=== PATIENT | male | born 1965 | race Caucasian/White ===

== ENCOUNTER 2024-03-31 13:43 | Inpatient (IN) | payer OTHER, SELFPAY ==
[2024-03-31 13:49] VITALS: BP 170/96; PULSE 85; RESP 20; TEMP 36.3; O2SAT 97
[2024-03-31 13:51] VITALS: BMI 21.2
[2024-03-31 14:00] VITALS: BP 164/111; PULSE 81; RESP 20; TEMP 36.4; O2SAT 96
[2024-03-31] MEDS: LORazepam 2 mg Tablet PO (14:34)
--- NOTE | 2024-03-31 14:36 | PC.NURSE ---
Ativan 2mg PO given per CIWA protocol score of 12.
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
--- NOTE | 2024-03-31 15:24 | PC.NURSE ---
This nurse contacted [facility] in [place] in an attempt to reconcile medications. I was transferred to a clinic in [place]. Left message for somebody to return call.
[2024-03-31] MEDS: nicotine 4 mg lozenge MUCOUS MEM (15:27)
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
--- NOTE | 2024-03-31 17:10 | PC.NURSE ---
This nurse called [facility] in [place] and talked to MARINA Diaz, the nurse who gave report on this patient, requesting that more information be faxed, including any lab results. Emily said that she would try to fax within the hour.
--- NOTE | 2024-03-31 17:11 | PC.NURSE ---
This nurse faxed a cover letter along with patient's name, , continuity of care , and current med list to Sachi at the [facility]. . Fax:
[2024-03-31 20:00] VITALS: BP 133/94; PULSE 100; RESP 16; TEMP 36.7; O2SAT 96
[2024-04-01] VITALS (7 sets, daily range): BP systolic 133–163; BP diastolic 88–114; PULSE 66–98; RESP 15–18; TEMP 36.4; O2SAT 95–99
[2024-04-01] MEDS: LORazepam 2 mg Tablet PO ×2 (06:34→16:20)
[2024-04-01] MEDS: multivitamin therapeutic Tablet 1 TAB PO (08:24)
[2024-04-01] MEDS: thiamine 100 mg Tablet PO (08:24)
[2024-04-01] MEDS: folic acid 1 mg Tablet PO (08:24)
[2024-04-01] MEDS: duloxetine 30 mg Capsule PO (08:25)
[2024-04-01] MEDS: nicotine 21 mg Patch 1 PATCH TRANSDERMA (08:25)
--- NOTE | 2024-04-01 09:09 | PC.NURSE ---
PT CURRENTLY DENIES SI/HI/AH/VH. PT CURRENTLY ENDORSES ANXIETY AND DEPRESSION RATING BOTH A 7/10 ON A 0-10 SCALE WHERE 0 IS NONE AND 10 IS THE WORST POSSIBLE. PT WAS COOPERATIVE WITH ASSESSMENT. PT SCORED A 7 ON THE CIWA PROTOCOL AND DID NOT RECEIVE PRN MEDICATION DUE TO THIS SCORE. PT CURRENT NEEDS ARE MET AT THIS TIME.
[2024-04-01] MEDS: lisinopril 10 mg Tablet PO (14:51)
[2024-04-01] MEDS: tamsulosin 0.4 mg Capsule 0.400000000000000022 MG PO (14:51)
--- NOTE | 2024-04-01 16:18 | PC.NURSE ---
PT SCORED 5 ON CIWA PROTOCOL. PT BLOOD PRESSURE WAS 156/110. THIS NURSE SPOKE WITH PHYSICIAN. PHYSICIAN GAVE ORDER TO GIVE ATIVAN 2 MG FOR ALCOHOL WITHDRAW. PT RECEIVED THIS MEDICATION.
--- NOTE | 2024-04-01 17:11 | W.PM.NPUPNS ---
Subjective NPU Subjective: 58-year-old male with a history of depression and alcohol dependence admitted with suicidal ideation. The patient had been able to attend groups. He reported motivation with getting sober off of alcohol. He had reported a history of poor tolerance of antidepressants although he had started the Cymbalta without any noted side effects today. Patient reported that he would like to consider Vivitrol to manage his cravings for alcohol. He had reported continued use of alcohol despite significant adverse consequences. He had [facility]. He had reported low motivation and low energy. He did not endorse any clear history of shell. The patient had reported that he was desiring to live and stated that his alcohol abuse would kill him. He had required Ativan for alcohol related withdrawal on the [facility] protocol. Mental Status Exam MSE Comments: Patient is a casually dressed thin white male who appeared his stated age with fair eye contact. His gait was within normal limits. There was no evidence of any abnormal involuntary motor movements tics or tremors appreciated. His speech was normal in regards to rate rhythm and prosody. His mood was described as depressed. His affect was flat today. His thought process was linear, logical, and goal-directed. His thought content showed no evidence of active homicidal ideation. He had endorsed suicidal ideation without an active plan. There was no clear evidence of delusional thinking. He did not appear to be responding to internal stimuli. He denied any auditory or visual hallucinations. His attention span appeared fair. His insight is poor. His judgment is poor. His impulse control appeared limited. His recent and remote memory appeared grossly intact. Vitals/I&O/Wt Last Vital Signs Temp 98.1 F 03/31/24 20:00 Pulse 93 04/01/24 16:00 Resp 17 04/01/24 16:00 BP 156/110 04/01/24 16:00 Pulse Ox 95 04/01/24 16:00 O2 Del Method Room Air 04/01/24 16:00 Weight last 48 hrs Weight 63.503 kg A&P Assessment and plan (1) Alcohol dependence: (2) Major depressive disorder, recurrent severe without psychotic features: (3) PTSD (post-traumatic stress disorder): Plan 58-year-old male with alcohol dependence, PTSD and Major depression admitted with suicidal ideation with current alcohol withdrawal symptoms. #1.? Engage patient in individual milieu and group therapy. #2?? Recommend sober living treatment at the highest level of care to which the patient is willing to commit #3??? CIWA for alcohol withdrawal #4?? TO-15 minute checks #5?? Continue Cymbalta 30mg daily. #6 Restart outpatient medications. #7 VIVITROL 380mg IM tommorow. start trial of naltrexone oral today. Involuntary Hold Information 96 Hour Hold: 96 Hour Involuntary Admission: No Attestations NPU Medical Necessity Statement*: Inpatient hospitalization is medically necessary and deemed to ?be ?the clinically appropriate intervention ?at this time.? We will monitor/initiate medications and make changes as indicated.?? The patient?s likely length of stay 4-6 days. Coding Level of Care Code Acute Code for [facility]wd Diagnoses Alcohol dependence F10.20 Major depressive disorder, recurrent severe without psychotic features F33.2 PTSD (post-traumatic stress disorder) F43.10
[2024-04-01] MEDS: trazodone 50 mg Tablet PO (21:03)
[2024-04-01] MEDS: atorvastatin 40 mg Tablet PO (21:03)
[2024-04-01] MEDS: hyDROXYzine 25 mg Capsule 100 MG PO (21:03)
[2024-04-02] VITALS (7 sets, daily range): BP systolic 120–135; BP diastolic 83–99; PULSE 61–110; RESP 16–17; TEMP 36.5–36.7; O2SAT 94–98
[2024-04-02] MEDS: lisinopril 10 mg Tablet PO (08:30)
[2024-04-02] MEDS: cholecalciferol (vitamin D3) 1,000 unit Tablet 1000 UNIT PO (08:30)
[2024-04-02] MEDS: multivitamin therapeutic Tablet 1 TAB PO (08:30)
[2024-04-02] MEDS: tamsulosin 0.4 mg Capsule 0.400000000000000022 MG PO (08:30)
[2024-04-02] MEDS: nicotine 21 mg Patch 1 PATCH TRANSDERMA (08:31)
[2024-04-02] MEDS: duloxetine 30 mg Capsule PO (08:31)
[2024-04-02] MEDS: thiamine 100 mg Tablet PO (08:31)
[2024-04-02] MEDS: aspirin 81 mg EC Tablet PO (08:31)
[2024-04-02] MEDS: folic acid 1 mg Tablet PO (08:31)
--- NOTE | 2024-04-02 08:56 | PC.NURSE ---
SITTING IN BED, PT IS VISUALLY ANXIOUS. DENIES PAIN. DENIES SI/HI AND AVH AT THIS TIME. PT IS NOTED TO BE WITHDRAWN. RATES ANXIETY 2/10 AND DEPRESSION 5/10. PT IS NOTED TO HAVE A DEPRESSED AND ANXIOUS MOOD. DECLINES MEDICATIONS FOR ANXIETY AT THIS TIME. CIWA PROTOCOL CONTINUES AND PT HAS SCORED 0. PT STATES GOAL FOR THE DAY IS JUST KEEP TELLING MYSELF IF I DO THE WORK THEN EVERYTHING WILL BE OK FOR M E. ALL QUESTIONS ANSWERED AND SUPPORT VOICED.
[2024-04-02] MEDS: NON-FORMULARY MEDICATION 50 EACH PO (12:47)
--- NOTE | 2024-04-02 14:46 | P.NPUPN_ITS ---
Subjective NPU Subjective: 58-year-old male with a history of depre ssion and alcohol dependence admitted with suicidal ideation. The patient reported depressed mood. He had reported no side effects currently from the Cymbalta. He reported continued cravings for alcohol. He remained agreeable to a trial of Vivitrol intramuscularly to target his significant alcohol abuse. He had continued to require Ativan for alcohol- related withdrawals here on the unit. He had continued to report low motivation and low energy and continued to express concern that he will from his alcohol use. Patient had current plans for going inpatient but wanted to check with his workplace to see whether it would be available for him to take a temporary leave of absence. Mental Status Exam MSE Comments: Patient is a casually dressed thin white male with marvin complexion who appeared his stated age with fair eye contact. His gait was within normal limits. There was no evidence of any abnormal involuntary motor movements tics but a mild tremor appreciated billaterally in hands. His speech was normal in regards to rate rhythm and prosody. His mood was described as down. His affect was restricted. His thought process was linear, logical, and goal-directed. His thought content showed no evidence of active homicidal ideation. He denied suicidal ideation with no active plan. There was no clear evidence of de lusional thinking. He did not appear to be responding to internal stimuli. He denied any auditory or visual hallucinations. His attention span appeared fair. His insight is poor. His judgment is poor. His impulse control appeared limited. His recent and remote memory appeared grossly intact. Vitals/I&O/Wt Last Vital Signs Temp 97.5 F L 04/01/24 20:00 Pulse 93 04/02/24 12:00 Resp 16 04/02/24 12:00 BP 122/89 04/02/24 12:00 Pulse Ox 96 04/02/24 12:00 O2 Del Method Room Air 04/01/24 16:00 A&P Assessment and plan (1) Alcohol dependence: (2) Major depressive disorder, recurrent severe without psychotic features: (3) PTSD (post-traumatic stress disorder): Plan 58-year-old male with alcohol dependence, PTSD and Major depression admitted with suicidal ideation with current alcohol withdrawal symptoms. #1.? Engage patient in individual milieu and group therapy. #2?? Recommend sober living treatment at the highest level of care to which the patient is willing to commit #3??? CIWA for alcohol withdrawal #4?? TO-15 minute checks #5?? Continue Cymbalta 30mg daily with increase in 2-3 days. #6 Continue outpatient medications. #7 VIVITROL 380mg IM to be given tommorow. Involuntary Hold Information 96 Hour Hold: 96 Hour Involuntary Admission: No Attestations NPU Medical Necessity Statement*: Inpatient hospitalization is medically necessary and deemed to ?be ?the clinically appropriate intervention ?at this time.? We will monitor/initiate medications and make changes as indicated.?? The patient?s likely length of stay 4-6 days. Coding Level of Care Code Acute Code for [facility] Fwd Diagnoses Alcohol dependence F10.20 Major depressive disorder, recurrent severe without psychotic features F33.2 PTSD (post-traumatic stress disorder) F43.10
--- NOTE | 2024-04-02 16:06 | PC.NURSE ---
PT SHOULD DISCHARGE TOMORROW PER DR. HAQ. PT HAS NOT TAKEN ANY PRN ANXIETY MEDICATIONS THIS SHIFT. CIWA PROTOCOL DISCONTINUED PER DR. HAQ. ORDERS REMOVED IN [facility]. PT EDUCATED AND VERBALIZED UNDERSTANDING. SUPPORT VOICED.
--- NOTE | 2024-04-02 19:11 | PC.NURSE ---
NEW ORDERS RECEIVED FROM DR. HAQ TO START VIVITROL 380 MG IM ONCE ON 04/03/24 AT 0900 AM.PT IS TO TAKE INJECTION EVERY MONTH TO ASSIST WITH ALCOHOL DEPENDENCE ISSUES. PT EDUCATED ON NEW ORDERS AND VERBALIZED UNDERSTANDING.
[2024-04-02] MEDS: atorvastatin 40 mg Tablet PO (20:41)
[2024-04-02] MEDS: hyDROXYzine 25 mg Capsule 100 MG PO (20:41)
[2024-04-02] MEDS: trazodone 50 mg Tablet PO (20:41)
[2024-04-03 06:00] VITALS: BP 100/70; PULSE 96; RESP 15; TEMP 36.4; O2SAT 99
[2024-04-03] MEDS: duloxetine 30 mg Capsule PO (08:15)
[2024-04-03] MEDS: tamsulosin 0.4 mg Capsule 0.400000000000000022 MG PO (08:16)
[2024-04-03] MEDS: aspirin 81 mg EC Tablet PO (08:16)
[2024-04-03] MEDS: cholecalciferol (vitamin D3) 1,000 unit Tablet 1000 UNIT PO (08:16)
[2024-04-03] MEDS: folic acid 1 mg Tablet PO (08:16)
[2024-04-03] MEDS: multivitamin therapeutic Tablet 1 TAB PO (08:16)
[2024-04-03] MEDS: nicotine 21 mg Patch 1 PATCH TRANSDERMA (08:16)
[2024-04-03] MEDS: lisinopril 10 mg Tablet PO (08:16)
[2024-04-03] MEDS: thiamine 100 mg Tablet PO (08:16)
--- NOTE | 2024-04-03 08:42 | PC.NURSE ---
RESTING IN BED, SITTING. PT DENIES PAIN. DENIES SI/HI AND AVH AT THIS TIME. PT IS TO RECEIVE VIVITROL INJECTION ONCE PHARMACY BRINGS TO UNIT AND THEN POSSIBLY BE DISCHARGED. RATES ANXIETY 5/10 AND DEPRESSION 2/10. PT CONTINUES TO DECLINE ANTI ANXIETY MEDICATIONS AT THIS TIME. PT STATES GOAL FOR THE DAY IS TO KEEP POSITIVE AND THINK POSITIVE. ALL QUESTIONS ANSWERED AND SUPPORT WAS VOICED.
[2024-04-03] MEDS: NON-FORMULARY MEDICATION 380 EACH IM (13:12)
--- NOTE | 2024-04-03 13:36 | PC.NURSE ---
VIVITROL 380 MG WAS GIVEN ORDERED IN RIGHT GLUTEAL, PT TOLERATED WELL.
[2024-04-03 14:00] VITALS: BP 113/79; PULSE 92; RESP 20; TEMP 36.5; O2SAT 98
--- NOTE | 2024-04-03 16:52 | W.PM.NPUPNS ---
Subjective NPU Subjective: Patient presented today reporting that he is starting to feel better. We had a fairly robust conversation about his addictive behavior in his life and the fact that he is incapable of drinking without things falling into disrepair in his life. He acknowledges however that he has been unable to put together a set of processes that allows him to stay sober indefinitely. He tends to isolate and attempt to do this alone. He did have a period of about 70 months of sobriety and he will lean on those successes. [facility] We talked about the likely discharge on Saturday. We discussed the risks, benefits and alternatives of increasing his Cymbalta to 60 mg tomorrow and he understood and agreed to proceed as is noted in this note. He did receive his Vivitrol injection this morning. He denied side effects to his medications. Mental Status Exam MSE Comments: Patient is a casually dressed thin white male with marvin complexion who appeared his stated age with fair eye contact. His gait was within normal limits. There was no evidence of any abnormal involuntary motor movements tics but a mild tremor appreciated billaterally in hands. His speech was normal in regards to rate rhythm and prosody. His mood was described as a little better. His affect was congruent but slightly restricted. His thought process was linear, logical, and goal-directed. His thought content showed no evidence of active homicidal ideation. He denied suicidal ideation. There was no clear evidence of delusional thinking. He did not appear to be responding to internal stimuli. He denied any auditory or visual hallucinations. His attention span appeared fair. His insight is limited. His judgment is poor. His impulse control appeared limited. His recent and remote memory appeared grossly intact. Vitals/I&O/Wt Last Vital Signs Temp 97.7 F 04/03/24 14:00 Pulse 92 04/03/24 14:00 Resp 20 H 04/03/24 14:00 BP 113/79 04/03/24 14:00 Pulse Ox 98 04/03/24 14:00 O2 Del Method Room Air 04/01/24 16:00 A&P Assessment and plan (1) Alcohol dependence: (2) Major depressive disorder, recurrent severe without psychotic features: (3) PTSD (post-traumatic stress disorder): Plan 58-year-old male with alcohol dependence, PTSD and Major depression admitted with suicidal ideation with current alcohol withdrawal symptoms. #1. Engage patient in individual milieu and group therapy. #2?? Recommend sober living treatment at the highest level of care to which the patient is willing to commit #3??? CIWA for alcohol withdrawal #4?? TO-15 minute checks #5?? Continue Cymbalta 30mg daily and increase to 60 mg tomorrow. #6 Continue outpatient medications. #7 VIVITROL 380mg IM to be given today, 04/03/2020 Involuntary Hold Information 96 Hour Hold: 96 Hour Involuntary Admission: No Attestations NPU Medical Necessity Statement*: Inpatient hospitalization is medically necessary and deemed to ?be ?the clinically appropriate intervention ?at this time.? We will monitor/initiate medications and make changes as indicated.?? The patient?s likely length of stay 3-4 days. Coding Level of Care Code Acute Code for [facility] Fwd Diagnoses Alcohol dependence F10.20 Major depressive disorder, recurrent severe without psychotic features F33.2 PTSD (post-traumatic stress disorder) F43.10
[2024-04-03 21:29] VITALS: BP 138/90; PULSE 108; RESP 18; O2SAT 94
[2024-04-03] MEDS: trazodone 50 mg Tablet PO ×2 (21:31→23:21)
[2024-04-03] MEDS: atorvastatin 40 mg Tablet PO (21:31)
[2024-04-03] MEDS: hyDROXYzine 25 mg Capsule 100 MG PO (21:31)
[2024-04-04 06:00] VITALS: BP 109/72; PULSE 103; RESP 18; TEMP 36.4; O2SAT 98
--- NOTE | 2024-04-04 07:19 | W.PM.NPUPNS ---
Subjective NPU Subjective: Patient presented today reporting that his plan for discharge is coming together. He reports that he has some appointments on Saturday with his employer as well as a therapist that he definitely wants to make. We also discussed NE plans for inpatient rehab. He reports feeling like being here is the right thing and he is hoping to have everything moving the right direction by Saturday. We discussed past history of feeling somewhat agitated or vibrational on antidepressants. We discussed the risks benefits and alternatives of starting 5 mg of Zyprexa p.o. nightly and he understood and agreed to proceed as is documented in this note. We discussed being hopeful that this might stave off in the vibrational episodes. He denied any side effects of the medication. Mental Status Exam MSE Comments: Patient is a casually dressed thin white male with marvin complexion who appeared his stated age with fair eye contact. His gait was within normal limits. There was no evidence of any abnormal involuntary motor movements tics but a mild tremor appreciated billaterally in hands. His speech was normal in regards to rate rhythm and prosody. His mood was described as a little better. His affect was congruent but slightly restricted. His thought process was linear, logical, and goal-directed. His thought content showed no evidence of active homicidal ideation. He denied suicidal ideation. There was no clear evidence of delusional thinking. He did not appear to be responding to internal stimuli. He denied any auditory or visual hallucinations. His attention span appeared fair. His insight is limited. His judgment is poor. His impulse control appeared limited. His recent and remote memory appeared grossly intact. Vitals/I&O/Wt Last Vital Signs Temp 97.6 F 04/04/24 06:00 Pulse 103 H 04/04/24 06:00 Resp 18 04/04/24 06:00 BP 109/72 04/04/24 06:00 Pulse Ox 98 04/04/24 06:00 O2 Del Method Room Air 04/04/24 06:00 A&P Assessment and plan (1) Alcohol dependence: (2) Major depressive disorder, recurrent severe without psychotic features: (3) PTSD (post-traumatic stress disorder): Plan 58-year-old male with alcohol dependence, PTSD and Major depression admitted with suicidal ideation with current alcohol withdrawal symptoms. #1. Engage patient in individual milieu and group therapy. #2?? Recommend sober living treatment at the highest level of care to which the patient is willing to commit #3??? CIWA for alcohol withdrawal #4?? TO-15 minute checks #5?? Continue Cymbalta 30mg daily and increased to 60 mg today, 04/04/2024. Begin Zyprexa 5 mg p.o. nightly. #6 Continue outpatient medications. #7 VIVITROL 380mg IM to be given 04/03/2020 Involuntary Hold Information 96 Hour Hold: 96 Hour Involuntary Admission: No Attestations NPU Medical Necessity Statement*: Inpatient hospitalization is medically necessary and deemed to ?be ?the clinically appropriate intervention ?at this time.? We will monitor/initiate medications and make changes as indicated.?? The patient?s likely length of stay 2-3 days. Coding Level of Care Code Acute Code for g Fwd Diagnoses Alcohol dependence F10.20 Major depressive disorder, recurrent severe without psychotic features F33.2 PTSD (post-traumatic stress disorder) F43.10
[2024-04-04] MEDS: cholecalciferol (vitamin D3) 1,000 unit Tablet 1000 UNIT PO (08:21)
[2024-04-04] MEDS: tamsulosin 0.4 mg Capsule 0.400000000000000022 MG PO (08:21)
[2024-04-04] MEDS: multivitamin therapeutic Tablet 1 TAB PO (08:21)
[2024-04-04] MEDS: aspirin 81 mg EC Tablet PO (08:21)
[2024-04-04] MEDS: duloxetine 60 mg Capsule PO (08:21)
[2024-04-04] MEDS: thiamine 100 mg Tablet PO (08:21)
[2024-04-04] MEDS: folic acid 1 mg Tablet PO (08:21)
[2024-04-04] MEDS: lisinopril 10 mg Tablet PO (08:22)
[2024-04-04] MEDS: nicotine 21 mg Patch 1 PATCH TRANSDERMA (12:15)
[2024-04-04 13:04] VITALS: BP 107/77; PULSE 82; RESP 20; TEMP 36.5; O2SAT 97
[2024-04-04] MEDS: atorvastatin 40 mg Tablet PO (20:04)
[2024-04-04] MEDS: OLANZapine 5 mg ODT PO (20:04)
[2024-04-04] MEDS: hyDROXYzine 25 mg Capsule 100 MG PO (20:05)
[2024-04-04 20:22] VITALS: BP 121/83; PULSE 94; RESP 18; TEMP 36.3; O2SAT 96
[2024-04-05 06:00] VITALS: BP 107/77; PULSE 80; RESP 18; TEMP 36.4; O2SAT 97
[2024-04-05] MEDS: multivitamin therapeutic Tablet 1 TAB PO (08:47)
[2024-04-05] MEDS: aspirin 81 mg EC Tablet PO (08:47)
[2024-04-05] MEDS: tamsulosin 0.4 mg Capsule 0.400000000000000022 MG PO (08:47)
[2024-04-05] MEDS: lisinopril 10 mg Tablet PO (08:47)
[2024-04-05] MEDS: thiamine 100 mg Tablet PO (08:47)
[2024-04-05] MEDS: nicotine 21 mg Patch 1 PATCH TRANSDERMA (08:47)
[2024-04-05] MEDS: folic acid 1 mg Tablet PO (08:47)
[2024-04-05] MEDS: duloxetine 60 mg Capsule PO (08:47)
[2024-04-05] MEDS: cholecalciferol (vitamin D3) 1,000 unit Tablet 1000 UNIT PO (08:47)
[2024-04-05 13:48] VITALS: BP 111/77; PULSE 88; RESP 18; TEMP 36.9; O2SAT 97
--- NOTE | 2024-04-05 14:18 | W.PM.NPUPNS ---
Subjective NPU Subjective: Patient presented today reporting that he is feeling considerably better. He reports that the Zyprexa I will that was added was very helpful and he feels less jittery in regards to the Cymbalta. He continues to report a commitment to recovery and a plan that involves multiple appointments on Saturday and hope for discharge tomorrow. We discussed working with the social work team tomorrow to execute that plan with a likely plan for discharge tomorrow. He denied any side effects of the medication. Mental Status Exam MSE Comments: Patient is a casually dressed thin white male with marvin complexion who appeared his stated age with fair eye contact. His gait was within normal limits. There was no evidence of any abnormal involuntary motor movements. His speech was normal in regards to rate rhythm and prosody. His mood was described as a little better. His affect was congruent. His thought process was linear, logical, and goal-directed. His thought content showed no evidence of active homicidal ideation. He denied suicidal ideation. There was no clear evidence of delusional thinking. He did not appear to be responding to internal stimuli. He denied any auditory or visual hallucinations. His attention span appeared fair. His insight and judgment are improving his impulse control appeared limited, but improving. His recent and remote memory appeared grossly intact. Vitals/I&O/Wt Last Vital Signs Temp 98.4 F 04/05/24 13:48 Pulse 88 04/05/24 13:48 Resp 18 04/05/24 13:48 BP 111/77 04/05/24 13:48 Pulse Ox 97 04/05/24 13:48 O2 Del Method Room Air 04/05/24 06:00 Weight last 48 hrs Weight 60.441 kg A&P Assessment and plan (1) Alcohol dependence: (2) Major depressive disorder, recurrent severe without psychotic features: (3) PTSD (post-traumatic stress disorder): Plan 58-year-old male with alcohol dependence, PTSD and Major depression admitted with suicidal ideation with current alcohol withdrawal symptoms. #1. Engage patient in individual milieu and group therapy. #2?? Recommend sober living treatment at the highest level of care to which the patient is willing to commit #3??? CIWA for alcohol withdrawal #4?? TO-15 minute checks #5?? Continue Cymbalta 30mg daily and increased to 60 mg today, 04/04/2024. Began Zyprexa 5 mg p.o. nightly. #6 Continue outpatient medications. #7 VIVITROL 380mg IM to be given 04/03/2020 Involuntary Hold Information 96 Hour Hold: 96 Hour Involuntary Admission: No Attestations NPU Medical Necessity Statement*: Inpatient hospitalization is medically necessary and deemed to ?be ?the clinically appropriate intervention ?at this time.? We will monitor/initiate medications and make changes as indicated.?? The patient?s likely length of stay 1-2 days. Coding Level of Care Code Acute Code for Chg Fwd Diagnoses Alcohol dependence F10.20 Major depressive disorder, recurrent severe without psychotic features F33.2 PTSD (post-traumatic stress disorder) F43.10
[2024-04-05] MEDS: OLANZapine 5 mg TABLET PO (20:07)
[2024-04-05] MEDS: hyDROXYzine 25 mg Capsule 100 MG PO (20:09)
[2024-04-05] MEDS: atorvastatin 40 mg Tablet PO (20:09)
[2024-04-05 20:12] VITALS: BP 125/79; PULSE 96; RESP 18; TEMP 36.4; O2SAT 98
[2024-04-06] MEDS: trazodone 50 mg Tablet PO (00:03)
[2024-04-06 06:00] VITALS: BP 95/68; PULSE 92; RESP 17; TEMP 36.5; O2SAT 99
--- NOTE | 2024-04-06 08:34 | PC.NURSE ---
UP WALKING HALLWAYS. DENIES SI/HI AND AVH AT THIS TIME. REPORTS HE SLEPT WELL. RATES ANXIETY AND DEPRESSION /. GOAL FOR THE DAY IS GO HOME AND GO TO A MEETING. PT ANTICIPATES DISCHARGE TODAY. ALL QUESTIONS ANSWERED AND SUPPORT VOICED. DENIES PAIN.
[2024-04-06] MEDS: multivitamin therapeutic Tablet 1 TAB PO (08:45)
[2024-04-06] MEDS: duloxetine 60 mg Capsule PO (08:45)
[2024-04-06] MEDS: cholecalciferol (vitamin D3) 1,000 unit Tablet 1000 UNIT PO (08:45)
[2024-04-06] MEDS: aspirin 81 mg EC Tablet PO (08:45)
[2024-04-06] MEDS: folic acid 1 mg Tablet PO (08:45)
[2024-04-06] MEDS: tamsulosin 0.4 mg Capsule 0.400000000000000022 MG PO (08:45)
[2024-04-06] MEDS: thiamine 100 mg Tablet PO (08:45)
[2024-04-06] MEDS: lisinopril 10 mg Tablet PO (08:46)
[2024-04-06] MEDS: nicotine 21 mg Patch 1 PATCH TRANSDERMA (08:51)
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
[2024-04-06 12:20] VITALS: BP 95/68; PULSE 92; RESP 17; TEMP 36.5; O2SAT 99
== END 2024-04-06 14:53 | disposition home or self-care (01) | DRG 897 ==
PROVIDERS: Admitting Provider Psychiatry & Neurology Psychiatry; Visit Provider Psychiatry & Neurology Psychiatry
DX: F10.239 Alcohol dependence with withdrawal, unspecified (principal); F33.2 Major depressive disorder, recurrent severe without psychotic features; R45.851 Suicidal ideations; F43.12 Post-traumatic stress disorder, chronic; Z62.810 Personal history of physical and sexual abuse in childhood
CPT/HCPCS: 96372; 97150; 97165